=== PATIENT | female | born 1995 | race African-American/Black ===

== ENCOUNTER 2017-12-23 11:01 | Emergency (ER) | payer MEDICAID ==
[~2017-12-23] VITALS: Ht 180.3 cm; Wt 76.7 kg
[2017-12-23 11:33] VITALS: BP 129/79
== END 2017-12-23 15:44 | disposition left against medical advice (07) ==
LOC: ER 11:01
DX: Z00.00 Encounter for general adult medical examination without abnormal findings (principal); Z53.29 Procedure and treatment not carried out because of patient's decision for other reasons